=== PATIENT | female | born 1990 | race Caucasian/White ===

== ENCOUNTER 2025-08-19 08:26 | Emergency (ER) | payer MEDICAID ==
[~2025-08-19] VITALS: Ht 177.8 cm; Wt 96.9 kg
[~2025-08-19 08:26] MED LIST: ASPI-1071 PO; ATOR20TA66 PO; CARV6.253 PO; ONDA-243 PO
[2025-08-19 08:28] VITALS: TEMP 96.9
[2025-08-19] MEDS ORDERED: CARV6.253 PO (11:13)
[2025-08-19] MEDS ORDERED: ASPI-1071 PO (11:13)
[2025-08-19] MEDS ORDERED: ATOR20TA66 PO (11:13)
--- NOTE | 2025-08-19 11:13 | Physician Documentation ---
HPI ~ General Chief Complaint: Medication Refill Stated Complaint: MED REQUEST Time Seen by MD: 11:01 History of Present Illness HPI Comments PATIENT IS REQUESTING MEDICATION REFILLS SECONDARY TO TO HAVE ANY HEART ATTACK A MONTH AGO. DR. BARGER AND MEGHNA WAS UNAVAILABLE TO SEE HER TODAY THEREFORE SHE IS REQUESTING HER PRESCRIBED CARDIAC MEDICINES. Medication Reconciliation Allergies: Coded Allergies: No Known Allergies (Unverified , 08/19/25) Scheduled Aspirin (Ecotrin*), 1 TAB PO DAILY Atorvastatin Calcium (Atorvastatin Calcium), 20 MG PO HS Carvedilol (Carvedilol), 6.25 MG PO BID Scheduled PRN ONDANSETRON ODT 4mg tablet (Ondansetron Odt), 1 TAB PO Q6H PRN PRN for nausea/vomiting Past Medical History Alcohol Use: None Drug Use: marijuana Lives with: Family Lives In: Home Occupation: unemployed Review of Systems All Other Systems at this time: Reviewed and Negative ROS As stated above in the HPI, otherwise all systems are reviewed and negative. Physical Exam Physical Exam Vital Signs: Temperature: 96.9, Source: Temporal, Heart Rate: 64, Respiratory Rate: 16, BP: 120/83, Pulse Oximetry: 99, Weight: 96.900 Oxygen Flow Rate: 0 Physical Exam General: Alert, no apparent distress. HEENT: PERRL, EOMI, no injection, moist mucous membranes. Neck: Full range of motion. Respiratory: Lungs clear, no respiratory distress. Chest: No accessory muscle use. Cardiovascular: Regular rate and rhythm, no murmurs. Gastrointestinal: Soft, nontender, nondistended. Bowels sounds present. Extremities: Normal range of motion, no deformity. Neurologic: Oriented x4. Psychiatric: Normal mood and affect. Skin: Normal color, warm and dry. No edema, no ecchymosis. Progress Results/Orders Results/Orders Vital Signs 08/19/25 08/19/25 08:28 11:26 Temp 96.9 Pulse 64 62 Resp 16 16 B/P (MAP) 120/83 123/77 Pulse Ox 99 98 O2 Flow Rate 0 Medical Decision Making Additional information obtaine: N/A Findings MEDS REFILLING REQUESTED Differential Dx:Considerations: Include: Adverse circumstances, Economic, Psychosocial, Medical services unavail., Medication refill, Medication non- compliance, Other Departure Disposition: HOME / SELF CARE / HOMELESS Impression: Primary Impression: General medical exam Discharge Instructions: Medicine Refill at the Emergency Department Referrals: NO PRIMARY CARE PROVIDER (PCP) Prescriptions Aspirin (Ecotrin*) 81 Mg Tablet.dr 1 TAB PO DAILY for 30 Days, #30 TAB.SR Prov: GARY THORNTON NP 08/19/25 Carvedilol (Carvedilol) 6.25 Mg Tablet 6.25 MG PO BID for 30 Days, #60 TAB Prov: GARY THORNTON NP 08/19/25 Atorvastatin Calcium (Atorvastatin Calcium) 20 Mg Tablet 20 MG PO HS for 30 Days, #60 TAB Prov: GARY THORNTON NP 08/19/25 Signature Scribe Signature: f Attestation: Scribed for Gary Thornton Np by Gary Puente NP . 08/19/25 18:39 GARY THORNTON NP Aug 19, 2025 11:13
[2025-08-19 11:26] VITALS: BP 123/77; PULSE 62; RESP 16; O2SAT 98
== END 2025-08-19 11:28 | disposition home or self-care (01) ==
LOC: ER 08:26
DX: Z00.00 Encounter for general adult medical examination without abnormal findings (principal); F12.90 Cannabis use, unspecified, uncomplicated; I25.2 Old myocardial infarction; Z76.0 Encounter for issue of repeat prescription; Z79.82 Long term (current) use of aspirin; Z79.899 Other long term (current) drug therapy
CPT/HCPCS: 99282